=== PATIENT | female | born 1990 | race Caucasian/White ===

== ENCOUNTER → 2016-09-18 | Outpatient (CLI) | payer OTHER ==
[~2016-09-18] MED LIST: IRON325 M1 PO; LORTAB 7.5/5001 TAB PO; MOTRIN 600600 MG/TAB PO; MOTRIN 800800 MG/TAB PO; NORCO 325 MG-7.1 TAB PO; PRENATAL1 TA1 PO; VENTOLIN0.09 MG IH
== END ==
LOC: COL.RAD 08:39
DX: M19.012 Primary osteoarthritis, left shoulder (principal); M75.82 Other shoulder lesions, left shoulder

== ENCOUNTER → 2017-05-04 | Outpatient (CLI) | payer OTHER | LOC: COL.RAD 08:05 | DX: M25.512 Pain in left shoulder (principal); Z98.890 Other specified postprocedural states | CPT/HCPCS: J3301; Q9967 ==

== ENCOUNTER → 2017-05-25 | Outpatient (CLI) | payer OTHER | LOC: COL.RAD 09:30 | DX: M25.512 Pain in left shoulder (principal) ==

== ENCOUNTER → 2018-07-07 | Outpatient (CLI) | payer OTHER | LOC: MC.RAD 08:47 | DX: N63.41 Unspecified lump in right breast, subareolar (principal) ==

== ENCOUNTER → 2020-04-08 | Outpatient (CLI) | payer BC | LOC: COL.RAD 12:44 | DX: M25.551 Pain in right hip (principal); S73.101A Unspecified sprain of right hip, initial encounter | CPT/HCPCS: A9585; J3301; Q9967 ==